=== PATIENT | male | born 1980 | race Caucasian/White ===

== ENCOUNTER 2018-06-01 22:51 | Inpatient (IN) | payer OTHER ==
[~2018-06-01] VITALS: Ht 175.3 cm; Wt 95.0 kg
[2018-06-01] MEDS ORDERED: SODIUM CHLORIDE 0.9% 1,000ML IVBOLUS ONE (23:00)
[2018-06-01 23:13] LABS: MEAN CORPUSCULAR HEMOGLOBIN 32.6 pg (27.5-34.5); MEAN CORPUSCULAR HGB CONC 33.7 g/dL (33.2-36.2); MEAN CORPUSCULAR VOLUME 96.8 fL (81-97); MEAN PLATELET VOLUME 6.9 fL (7.4-10.4); PLATELET COUNT 211 x10^3/uL (130-400); RED BLOOD COUNT 5.78 x10^6/uL (4.38-5.82); RED CELL DISTRIBUTION WIDTH 17.1 % (9.4-14.8)
[2018-06-01 23:22] LABS: ALANINE AMINOTRANSFERASE 28 U/L (12-78); ALBUMIN 3.7 g/dL (3.4-5.0); ANION GAP 10 mmol/L (5-15); CALCIUM 7.8 mg/dL (8.5-10.1); CHLORIDE 107 mmol/L (98-107); CREATININE 1.51 mg/dL (0.7-1.3)
[2018-06-01 23:25] LABS: ALKALINE PHOSPHATASE 53 U/L (45-117); BILIRUBIN,TOTAL 0.4 mg/dL (0.2-1.0); MD YES; TOTAL PROTEIN 7.5 g/dL (6.4-8.2)
[2018-06-01 23:27] LABS: SALICYLATE LEVEL < 1.7 mg/dL (2.8-20.0)
[2018-06-01 23:28] LABS: ACETAMINOPHEN < 2 mcg/mL (10-30)
[2018-06-01 23:32] LABS: LYMPH#(MANUAL) 5.78 x10^3/uL (1-3.4); LYMPHS% (MANUAL) 53 % (22-44); MONOS#(MANUAL) 0.87 x10^3/uL (0.3-2.7); MONOS% (MANUAL) 8 % (2-9); REACTIVE LYMPHS # (MANUAL) 0.87 x10^3/uL (0-0); REACTIVE LYMPHS % (MANUAL) 8 % (0-0); SEG#(MANUAL) 3.38 x10^3/uL (1.8-6.8); SEGS% (MANUAL) 31 % (42-75)
[2018-06-01 23:33] LABS: <PLATELET ESTIMATE> ADEQUATE; <PLT MORPHOLOGY> NORMAL PLT MORPH; <RBC MORPHOLOGY> NORMAL
[2018-06-02] MEDS ORDERED: SODIUM CHLORIDE 0.9% 1,000 ML IV ONE (00:47)
[2018-06-02] MEDS ORDERED: LORazepam 2 MG/ML, 1ML IV PRN ×5 (01:30)
[2018-06-02] MEDS ORDERED: PLEASE ENTER ALLERGIES MC SCH (01:30)
[2018-06-02] MEDS ORDERED: PANTOPRAZOLE 40 MG IV IV SCH (01:30)
[2018-06-02] MEDS ORDERED: THIAMINE 200 MG in DEXTROSE 5% 50 ML IVPB ONE (01:30)
[2018-06-02] MEDS ORDERED: MORPHINE SULFATE 4 MG/ML, 1ML IV PRN (01:30)
[2018-06-02] MEDS ORDERED: ONDANSETRON 2MG/ML, 2ML IVPB PRN (01:30)
[2018-06-02] MEDS ORDERED: LABETALOL 5MG/ML, 20ML IV PRN (01:30)
[2018-06-02] MEDS ORDERED: POTASSIUM CHLORIDE 40 MEQ in SODIUM CHLORIDE 0.9% 500 ML IV ONE (01:30)
[2018-06-02] MEDS ORDERED: morphine SULFATE 10 MG/ML, 1ML IVPush PRN (01:30)
[2018-06-02] MEDS: ENOXAPARIN 40 MG/0.4 ML SQ SCH (03:21)
[2018-06-02] MEDS: SODIUM CHLORIDE 0.9%, 500ML IVBOLUS PRN ×3 (03:30→05:55)
[2018-06-02 03:41] VITALS: BP 94/43
[2018-06-02 04:16] VITALS: BP 90/47
[2018-06-02 04:43] LABS: MEAN CORPUSCULAR HEMOGLOBIN 32.7 pg (27.5-34.5); MEAN CORPUSCULAR HGB CONC 33.9 g/dL (33.2-36.2); MEAN CORPUSCULAR VOLUME 96.4 fL (81-97); MEAN PLATELET VOLUME 6.9 fL (7.4-10.4); PLATELET COUNT 216 x10^3/uL (130-400); RED BLOOD COUNT 5.22 x10^6/uL (4.38-5.82); RED CELL DISTRIBUTION WIDTH 16.7 % (9.4-14.8)
[2018-06-02 04:50] LABS: ALANINE AMINOTRANSFERASE 25 U/L (12-78); ALBUMIN 3.1 g/dL (3.4-5.0); ANION GAP 6 mmol/L (5-15); CALCIUM 6.7 mg/dL (8.5-10.1); CHLORIDE 113 mmol/L (98-107); CREATININE 1.17 mg/dL (0.7-1.3)
[2018-06-02 04:56] LABS: ALKALINE PHOSPHATASE 43 U/L (45-117); BILIRUBIN,TOTAL 0.3 mg/dL (0.2-1.0); TOTAL PROTEIN 6.3 g/dL (6.4-8.2)
[2018-06-02 05:03] LABS: BASOPHILS # (AUTO) 0.06 x10^3/uL (0-0.1); BASOPHILS % (AUTO) 0 % (0-1); EOSINOPHILS % (AUTO) 0 % (1-7); LYMPHOCYTES # (AUTO) 1.94 x10^3/uL (1-3.4); LYMPHOCYTES % (AUTO) 12 % (22-44); MD SCAN; MONOCYTES # (AUTO) 0.33 x10^3/uL (0.2-0.8); MONOCYTES % (AUTO) 2 % (2-9); NEUTROPHILS # (AUTO) 14.49 x10^3/uL (1.8-6.8); NEUTROPHILS % (AUTO) 86 % (42-75)
[2018-06-02] MEDS ORDERED: TRAZ-137 PO (05:44)
[2018-06-02] MEDS ORDERED: MIRT15TA4 PO (05:44)
[2018-06-02] MEDS ORDERED: unknown BP med (05:53)
[2018-06-02] MEDS ORDERED: MAGNESIUM SULFATE PMX 2GM/50ML 50 ML IV ONE (06:00)
[2018-06-02 07:42] LABS: AMPHETAMINE SCREEN, URINE Negative (Negative); BARBITURATE SCREEN, URINE Negative (Negative); BENZODIAZEPINE SCREEN, URINE Positive (Negative); CANNABINOID SCREEN, URINE Negative (Negative); COCAINE SCREEN, URINE Negative (Negative); METHADONE SCREEN, URINE Negative (Negative); OPIATE SCREEN, URINE Negative (Negative)
[2018-06-02 07:44] LABS: CHLORIDE,URINE RANDOM 175 mmol/L; POTASSIUM,URINE RANDOM 58 mmol/L; SODIUM,URINE RANDOM 121 mmol/L
[2018-06-02 07:54] LABS: CULTURE INDICATED? NO; MICROSCOPIC NOT IND
[2018-06-02] MEDS ORDERED: LORazepam 2 MG/ML, 1ML IVPush PRN (08:00)
[2018-06-02 08:10] LABS: OSMOLALITY,URINE 514 mOsm/kg (500-850)
[2018-06-02] MEDS: MULTIVITAMINS/MINERALS TABLET PO SCH (09:56)
[2018-06-02] MEDS: AMPICILLIN/SULBACTAM 3 GM in SODIUM CHLORIDE 0.9% 100 ML IV SCH ×3 (09:56→22:00)
[2018-06-02] MEDS: POTASSIUM CHLORIDE 20 MEQ, MVI ADULT 10 ML, FOLIC ACID 1 MG, MAGNESIUM SULFATE 1 GM in ... IV SCH ×2 (11:27→22:46)
[2018-06-02] MEDS ORDERED: LOSA50TA6 PO (13:03)
[2018-06-02] MEDS ORDERED: FLUO20SO2 PO (13:08)
[2018-06-02 19:49] VITALS: BP 107/66
[2018-06-03 01:00] VITALS: BP 130/86
[2018-06-03] MEDS: ENOXAPARIN 40 MG/0.4 ML SQ SCH (01:41)
[2018-06-03] MEDS: AMPICILLIN/SULBACTAM 3 GM in SODIUM CHLORIDE 0.9% 100 ML IV SCH ×4 (04:07→22:40)
[2018-06-03 05:20] LABS: ANION GAP 5 mmol/L (5-15); CALCIUM 7.5 mg/dL (8.5-10.1); CHLORIDE 111 mmol/L (98-107); CREATININE 1.39 mg/dL (0.7-1.3)
[2018-06-03 07:30] VITALS: BP 127/77
[2018-06-03] MEDS: PANTOPROZOLE 40MG TABLET PO SCH (08:07)
[2018-06-03] MEDS: MULTIVITAMINS/MINERALS TABLET PO SCH (08:19)
[2018-06-03 08:23] VITALS: BP 127/85
[2018-06-03] MEDS ORDERED: THIAMINE 100 MG in DEXTROSE 5% 50 ML IVPB SCH (09:00)
[2018-06-03] MEDS: THIAMINE 200 MG in DEXTROSE 5% 50 ML IVPB SCH (10:23)
[2018-06-03] MEDS: SODIUM CHLORIDE 0.9% 1,000 ML IV SCH ×2 (10:23→20:49)
[2018-06-03 12:57] VITALS: BP 142/80
[2018-06-03 13:55] VITALS: BP 123/82
[2018-06-03] MEDS ORDERED: TEST200V3 IM (15:29)
[2018-06-03] MEDS ORDERED: IBUPROFEN 200 MG TABLET PO PRN (16:00)
[2018-06-03] MEDS: ACETAMINOPHEN 325 MG TABLET PO PRN (16:27)
[2018-06-03] MEDS ORDERED: TESTOSTERONE CYPIONATE 200 MG/ML IM ONE (16:30)
[2018-06-03 20:00] VITALS: BP 135/79
[2018-06-03] MEDS ORDERED: POLYETHYLENE GLYCOL 17 GM PACKET PO PRN (22:00)
[2018-06-04] MEDS: ENOXAPARIN 40 MG/0.4 ML SQ SCH ×2 (01:29→22:19)
[2018-06-04 02:00] VITALS: BP 137/87
[2018-06-04] MEDS: AMPICILLIN/SULBACTAM 3 GM in SODIUM CHLORIDE 0.9% 100 ML IV SCH ×4 (04:29→22:19)
[2018-06-04 05:45] LABS: BASOPHILS # (AUTO) 0.04 x10^3/uL (0-0.1); BASOPHILS % (AUTO) 0 % (0-1); EOSINOPHILS # (AUTO) 0.13 x10^3/uL (0-0.4); EOSINOPHILS % (AUTO) 2 % (1-7); LYMPHOCYTES # (AUTO) 2.19 x10^3/uL (1-3.4); LYMPHOCYTES % (AUTO) 24 % (22-44); MD NO; MEAN CORPUSCULAR HEMOGLOBIN 32.4 pg (27.5-34.5); MEAN CORPUSCULAR HGB CONC 33.3 g/dL (33.2-36.2); MEAN CORPUSCULAR VOLUME 97.5 fL (81-97); MEAN PLATELET VOLUME 7.1 fL (7.4-10.4); MONOCYTES # (AUTO) 0.47 x10^3/uL (0.2-0.8); MONOCYTES % (AUTO) 5 % (2-9); NEUTROPHILS # (AUTO) 6.47 x10^3/uL (1.8-6.8); NEUTROPHILS % (AUTO) 70 % (42-75); PLATELET COUNT 163 x10^3/uL (130-400); RED BLOOD COUNT 4.83 x10^6/uL (4.38-5.82); RED CELL DISTRIBUTION WIDTH 17.4 % (9.4-14.8)
[2018-06-04 05:54] LABS: ANION GAP 7 mmol/L (5-15); CALCIUM 7.6 mg/dL (8.5-10.1); CHLORIDE 109 mmol/L (98-107); CREATININE 1.15 mg/dL (0.7-1.3)
[2018-06-04] MEDS: PANTOPROZOLE 40MG TABLET PO SCH (07:45)
[2018-06-04] MEDS: SODIUM CHLORIDE 0.9% 1,000 ML IV SCH ×2 (07:46→18:33)
[2018-06-04 07:58] VITALS: BP 132/84
[2018-06-04] MEDS: MULTIVITAMINS/MINERALS TABLET PO SCH (10:34)
[2018-06-04] MEDS: THIAMINE 200 MG in DEXTROSE 5% 50 ML IVPB SCH (10:35)
[2018-06-04 13:38] VITALS: BP 136/80
[2018-06-04 19:13] VITALS: BP 150/78
[2018-06-04] MEDS: MAGNESIUM CHLORIDE 64 MG TABLET.DR PO SCH (22:18)
[2018-06-04] MEDS: ACETAMINOPHEN 325 MG TABLET PO PRN (22:18)
[2018-06-05 00:38] VITALS: BP 132/79
[2018-06-05] MEDS: AMPICILLIN/SULBACTAM 3 GM in SODIUM CHLORIDE 0.9% 100 ML IV SCH ×2 (04:13→10:06)
[2018-06-05] MEDS: SODIUM CHLORIDE 0.9% 1,000 ML IV SCH (04:16)
[2018-06-05 06:52] VITALS: BP 143/88
[2018-06-05] MEDS: MULTIVITAMINS/MINERALS TABLET PO SCH (09:27)
[2018-06-05] MEDS: MAGNESIUM CHLORIDE 64 MG TABLET.DR PO SCH (09:27)
[2018-06-05] MEDS: THIAMINE 200 MG in DEXTROSE 5% 50 ML IVPB SCH (09:27)
[2018-06-05] MEDS: PANTOPROZOLE 40MG TABLET PO SCH (09:27)
[2018-06-05] MEDS ORDERED: FUROSEMIDE 40 MG/4 ML IV ONE (10:00)
[2018-06-05] MEDS ORDERED: FUROSEMIDE 40 MG/4 ML ONE (10:02)
[2018-06-05 12:14] VITALS: BP 154/82
[2018-06-05] MEDS ORDERED: FOLI-17 PO (16:24)
[2018-06-05] MEDS ORDERED: MULT-484 PO (16:24)
[2018-06-05] MEDS ORDERED: OMEP-110 PO (16:24)
[2018-06-05] MEDS ORDERED: THIA100T67 PO (16:24)
[2018-06-06] MEDS ORDERED: OMEPRAZOLE 20 MG CAPSULE.DR PO SCH (07:30)
[2018-06-06] MEDS ORDERED: FOLIC ACID 1 MG TABLET PO SCH (09:00)
[2018-06-06] MEDS ORDERED: THIAMINE 100MG TABLET PO SCH (09:00)
== END 2018-06-05 18:22 | DRG 917 ==
LOC: ED 06-02 00:55 → EDIP 06-02 00:56 → UNDOADMIN 06-02 00:56 → CCU 06-02 02:46 → 4WST 06-02 10:30
PROVIDERS: ADMIT Internal Medicine; ATTEND Internal Medicine
DX: T43.212A Poisoning by selective serotonin and norepinephrine reuptake inhibitors, intentional self-harm, initial encounter (principal); N17.0 Acute kidney failure with tubular necrosis; J69.0 Pneumonitis due to inhalation of food and vomit; J98.11 Atelectasis; T43.022A Poisoning by tetracyclic antidepressants, intentional self-harm, initial encounter; E86.0 Dehydration; E87.6 Hypokalemia; F10.129 Alcohol abuse with intoxication, unspecified; F32.9 Major depressive disorder, single episode, unspecified; I11.9 Hypertensive heart disease without heart failure; R09.02 Hypoxemia; Y92.89 Other specified places as the place of occurrence of the external cause; G31.2 Degeneration of nervous system due to alcohol; Z82.49 Family history of ischemic heart disease and other diseases of the circulatory system
CPT/HCPCS: 36415; 99291; J7042; 71045; 71046; 80048; 80053; 80307; 80329; 81003; 82436; 82570; 83735; 83935; 84100; 84133; 84300; 85025; 87040; 87081; 87205; J0295; J1071; J1650; J1940; J2405; J3411; J3475; J3480; C9113; G0480; J7030; J7040

== ENCOUNTER 2018-09-01 16:25 | Emergency (ER) | payer SELFPAY ==
[~2018-09-01] VITALS: Ht 175.3 cm; Wt 80.9 kg
[~2018-09-01 16:25] MED LIST: FLUO20SO2 PO; FOLI-17 PO; LOSA50TA7 PO; MIRT15TA4 PO; MULT-484 PO; OMEP-110 PO; TEST200V3 IM; THIA100T67 PO; TRAZ-137 PO; unknown BP med
[2018-09-01 16:39] VITALS: BP 116/70
[2018-09-01] MEDS ORDERED: DIPH,PERTUSS(ACELL),TET VAC/PF 0.5 ML IM-VACC ONE ×2 (17:00→17:42)
[2018-09-01 17:13] LABS: ALANINE AMINOTRANSFERASE 23 U/L (12-78); ALBUMIN 3.6 g/dL (3.4-5.0); ANION GAP 11 mmol/L (5-15); CALCIUM 8.2 mg/dL (8.5-10.1); CHLORIDE 108 mmol/L (98-107); CREATININE 1.39 mg/dL (0.7-1.3)
[2018-09-01 17:14] LABS: SALICYLATE LEVEL < 1.7 mg/dL (2.8-20.0)
[2018-09-01 17:15] LABS: ALKALINE PHOSPHATASE 72 U/L (45-117); BASOPHILS # (AUTO) 0.04 x10^3/uL (0-0.1); BASOPHILS % (AUTO) 0 % (0-1); BILIRUBIN,TOTAL 0.7 mg/dL (0.2-1.0); EOSINOPHILS # (AUTO) 0.03 x10^3/uL (0-0.4); EOSINOPHILS % (AUTO) 0 % (1-7); LYMPHOCYTES # (AUTO) 2.55 x10^3/uL (1-3.4); LYMPHOCYTES % (AUTO) 22 % (22-44); MD NO; MEAN CORPUSCULAR HEMOGLOBIN 32.1 pg (27.5-34.5); MEAN CORPUSCULAR HGB CONC 34.1 g/dL (33.2-36.2); MEAN PLATELET VOLUME 6.8 fL (7.4-10.4); MONOCYTES # (AUTO) 0.41 x10^3/uL (0.2-0.8); MONOCYTES % (AUTO) 4 % (2-9); NEUTROPHILS # (AUTO) 8.48 x10^3/uL (1.8-6.8); NEUTROPHILS % (AUTO) 74 % (42-75); PLATELET COUNT 265 x10^3/uL (130-400); RED BLOOD COUNT 5.04 x10^6/uL (4.38-5.82); RED CELL DISTRIBUTION WIDTH 16.5 % (9.4-14.8); TOTAL PROTEIN 7.4 g/dL (6.4-8.2)
[2018-09-01 17:17] LABS: ACETAMINOPHEN < 2 mcg/mL (10-30)
[2018-09-01] MEDS ORDERED: HYDR50TA13 PO (17:39)
[2018-09-01] MEDS ORDERED: NALT50TA PO (17:39)
[2018-09-01] MEDS ORDERED: FLUO40CA2 PO (17:39)
[2018-09-01] MEDS ORDERED: CHLO25CA9 PO (17:39)
[2018-09-01] MEDS ORDERED: LOSA100T7 PO (17:39)
[2018-09-01 17:57] LABS: AMPHETAMINE SCREEN, URINE Negative (Negative); BARBITURATE SCREEN, URINE Negative (Negative); BENZODIAZEPINE SCREEN, URINE Positive (Negative); CANNABINOID SCREEN, URINE Negative (Negative); COCAINE SCREEN, URINE Negative (Negative); METHADONE SCREEN, URINE Negative (Negative); OPIATE SCREEN, URINE Negative (Negative)
[2018-09-01] MEDS ORDERED: BACITRACIN ZINC OINT 500U/GM, 0.9 GM ONE (18:54)
== END 2018-09-02 05:37 | disposition home or self-care (01) ==
LOC: ED 21:43
DX: S51.812A Laceration without foreign body of left forearm, initial encounter (principal); F32.9 Major depressive disorder, single episode, unspecified; R45.851 Suicidal ideations; X83.8XXA Intentional self-harm by other specified means, initial encounter; Y93.89 Activity, other specified; Y92.89 Other specified places as the place of occurrence of the external cause; Y99.8 Other external cause status
CPT/HCPCS: 36415; 80053; 80307; 80329; 85025; 90471; 90715; G0480

== ENCOUNTER 2019-09-02 18:04 | Emergency (ER) | payer OTHER ==
[~2019-09-02] VITALS: Ht 175.3 cm; Wt 82.0 kg
[~2019-09-02 18:04] MED LIST changes: +CHLO25CA9 PO; +FLUO40CA2 PO; +HYDR50TA13 PO; +LOSA100T14 PO; +LOSA50TA14 PO; -LOSA50TA7 PO; +MIRT-34 PO; -MIRT15TA4 PO; +NALT50TA PO
[2019-09-02 18:18] VITALS: BP 132/53
--- NOTE | 2019-09-02 19:02 | NUR ---
HE STARTRD ETOH REHAB 2 WEEKS AGO-PATIENT REPORTS DIZZINESS SINCE THAT TIME. ALSO STARTED ON WELLBUTRIN AT THE SAME TIME PROVIDER MADE AWARE
[2019-09-02 19:08] LABS: ALANINE AMINOTRANSFERASE 22 U/L (12-78); ALBUMIN 3.7 g/dL (3.4-5.0); ANION GAP 3 mmol/L (5-15); CALCIUM 8.8 mg/dL (8.5-10.1); CHLORIDE 105 mmol/L (98-107); CREATININE 1.39 mg/dL (0.7-1.3)
[2019-09-02 19:10] LABS: ALKALINE PHOSPHATASE 58 U/L (45-117); BILIRUBIN,TOTAL 0.4 mg/dL (0.2-1.0); TOTAL PROTEIN 7.6 g/dL (6.4-8.2)
[2019-09-02 19:16] LABS: BASOPHILS # (AUTO) 0.02 x10^3/uL (0-0.1); BASOPHILS % (AUTO) 0 % (0-1); EOSINOPHILS # (AUTO) 0.06 x10^3/uL (0-0.4); EOSINOPHILS % (AUTO) 1 % (1-7); LYMPHOCYTES # (AUTO) 1.71 x10^3/uL (1-3.4); LYMPHOCYTES % (AUTO) 25 % (22-44); MD NO; MEAN CORPUSCULAR HEMOGLOBIN 34.1 pg (27.5-34.5); MEAN CORPUSCULAR HGB CONC 34.6 g/dL (33.2-36.2); MEAN CORPUSCULAR VOLUME 98.5 fL (81-97); MEAN PLATELET VOLUME 7.3 fL (7.4-10.4); MONOCYTES # (AUTO) 0.39 x10^3/uL (0.2-0.8); MONOCYTES % (AUTO) 6 % (2-9); NEUTROPHILS # (AUTO) 4.77 x10^3/uL (1.8-6.8); NEUTROPHILS % (AUTO) 69 % (42-75); PLATELET COUNT 180 x10^3/uL (130-400); RED BLOOD COUNT 4.64 x10^6/uL (4.38-5.82); RED CELL DISTRIBUTION WIDTH 13.9 % (9.4-14.8)
[2019-09-02] MEDS ORDERED: MECLIZINE CHEWABLE 25 MG TAB ONE (19:52)
--- NOTE | 2019-09-02 19:56 | NUR ---
medicated per emar to monitor for 15-20 min then probable d/c Provided with po fluids as well
[2019-09-02] MEDS ORDERED: MECLIZINE CHEWABLE 25 MG TAB PO ONE (20:00)
--- NOTE | 2019-09-02 20:48 | NUR ---
Patient reports "I feel a little less dizzy" discharged in the care of father Reviewed symptoms neccesitating return to care, as well as prompt ent f/u
== END 2019-09-02 20:51 ==
LOC: ED 20:30
DX: S09.8XXA Other specified injuries of head, initial encounter (principal); R42 Dizziness and giddiness; H91.92 Unspecified hearing loss, left ear; W19.XXXA Unspecified fall, initial encounter; Y93.89 Activity, other specified; Y92.413 State road as the place of occurrence of the external cause; Y99.8 Other external cause status
CPT/HCPCS: 36415; 70450; 80053; 85025; 93005; 99284